=== PATIENT | male | born 2000 ===

== ENCOUNTER 2023-02-05 00:23 | Emergency (ER) | payer OTHER ==
[~2023-02-05] VITALS: Ht 170.2 cm; Wt 96.0 kg
[2023-02-05 04:45] VITALS: BP 132/84; PULSE 82; RESP 16; TEMP 98.4; O2SAT 98
== END 2023-02-05 04:51 | disposition home or self-care (01) ==
LOC: ER 00:23 → EEVIPCON 00:23 → ER 04:51
DX: R10.31 Right lower quadrant pain (principal); R10.2 Pelvic and perineal pain
CPT/HCPCS: 74176